=== PATIENT | male | born 1935 | race Caucasian/White ===

== ENCOUNTER 2016-07-31 05:47 | Observation (INO) | payer MEDICARE, OTHER ==
[2016-07-31] VITALS (7 sets, daily range): BP systolic 114–139; BP diastolic 62–97; PULSE 75–94; RESP 18–20; TEMP 97.8–98.1; O2SAT 92–99
[~2016-07-31] VITALS: Ht 182.9 cm; Wt 80.0 kg
[2016-07-31] MEDS ORDERED: SODIUM CHLORIDE 0.9% FLUSH 10 ML FLUSH IVF PRN (06:00)
[2016-07-31] MEDS ORDERED: MORPHINE SULFATE 4 MG/ML INJ IV PUSH ONE (06:00)
[2016-07-31] MEDS ORDERED: ALUMINUM/MAGNESIUM/SIMETH 30 ML CUP PO ONE ×2 (06:00→12:00)
[2016-07-31] MEDS ORDERED: SODIUM CHLORID 0.9% 500 ML INJ 500 ML IV ONE (06:00)
[2016-07-31] MEDS ORDERED: LIDOCAINE VISCOUS 2% SOLN 15 ML UDC PO ONE (06:00)
--- NOTE | 2016-07-31 06:02 | PD ---
HPI Chief Complaint: Chest Pain Time Seen by Provider: 05:58 Travel History International Travel<30 days: No Contact w/Intl Traveler<30days: No Traveled to known affect area: No History of Present Illness HPI 80-year-old male arrives to the ER by EMS with chest pain. He woke up about 4 hours prior to ER arrival with a burning sensation in the retrosternal chest. Prior to going to sleep he drink alcohol, "more than I should have." He also ate pepperoni and cheese. He states the pain had a similarity to GERD however lasted longer than any similar pain previously. PFSH Social History Tobacco Use: No Allergies-Medications (Allergen,Severity, Reaction): Coded Allergies: No Known Allergies (Unverified , 07/31/16) Reported Meds & Prescriptions Reported Meds & Active Scripts Active Reported Rabeprazole (Rabeprazole Sodium) 20 Mg Tab 20 Mg PO DAILY Ramipril 2.5 Mg Cap 2.5 Mg PO DAILY Aspirin 81 Mg Tabdr 81 Mg PO HS Simvastatin 40 Mg Tab 40 Mg PO HS Review of Systems Except as stated in HPI: all other systems reviewed are Neg Physical Exam Narrative GENERAL: 80-year-old male pleasant SKIN: Focused skin assessment warm/dry. HEAD: Atraumatic. Normocephalic. EYES: Pupils equal and round. No scleral icterus. No injection or drainage. ENT: No nasal bleeding or discharge. Mucous membranes pink and moist. NECK: Trachea midline. No JVD. CARDIOVASCULAR: Regular rate and rhythm. No murmur appreciated. RESPIRATORY: No accessory muscle use. Clear to auscultation. Breath sounds equal bilaterally. GASTROINTESTINAL: Abdomen soft, non-tender, nondistended. Hepatic and splenic margins not palpable. MUSCULOSKELETAL: No obvious deformities. No clubbing. No cyanosis. No edema. NEUROLOGICAL: Awake and alert. No obvious cranial nerve deficits. Motor grossly within normal limits. Normal speech. PSYCHIATRIC: Appropriate mood and affect; insight and judgment normal. Data Data Last Documented VS Vital Signs Date Time Temp Pulse Resp B/P Pulse Ox O2 Delivery O2 Flow Rate FiO2 07/31/16 06:05 83 07/31/16 05:53 97.8 18 134/97 94 Vital signs reviewed Orders Electrocardiogram (07/31/16 05:58) Basic Metabolic Panel (Bmp) (07/31/16 05:58) Ckmb (Isoenzyme) Profile (07/31/16 05:58) Complete Blood Count With Diff (07/31/16 05:58) Magnesium (Mg) (07/31/16 05:58) Prothrombin Time / Inr (Pt) (07/31/16 05:58) Act Partial Throm Time (Ptt) (07/31/16 05:58) Troponin I (07/31/16 05:58) Chest, Single Ap (07/31/16 05:58) Ecg Monitoring (07/31/16 05:58) Bilateral Bp Monitoring (07/31/16 05:58) Iv Access Insert/Monitor (07/31/16 05:58) Oximetry (07/31/16 05:58) Oxygen Administration (07/31/16 05:58) Morphine Inj (Morphine Inj) (07/31/16 06:00) Sodium Chloride 0.9% Flush (Ns Flush) (07/31/16 06:00) Sodium Chlorid 0.9% 500 Ml Inj (Ns 500 M (07/31/16 06:00) Al-Mag Hy-Si 40-40-4 Mg/Ml Liq (Mag-Al P (07/31/16 06:00) Lidocaine 2% Viscous (Xylocaine 2% Visco (07/31/16 06:00) CKMB (07/31/16 06:12) CKMB% (07/31/16 06:12) Resp Oxygen Nasal Cannula (07/31/16 ) Ckmb (Isoenzyme) Profile (07/31/16 10:01) Troponin I (07/31/16 10:01) Electrocardiogram (07/31/16 07:01) Electrocardiogram (07/31/16 10:01) Morphine Inj (Morphine Inj) (07/31/16 07:15) Ondansetron Inj (Zofran Inj) (07/31/16 07:15) Nitroglycerin Sl (Nitrostat Sl) (07/31/16 07:15) Aspirin (Aspirin) (07/31/16 09:00) Temazepam (Restoril) (07/31/16 07:15) Alprazolam (Xanax) (07/31/16 07:15) Admit Order (Ed Use Only) (07/31/16 07:01) CKMB (07/31/16 08:35) CKMB% (07/31/16 08:35) Labs Laboratory Tests Test 07/31/16 06:12 White Blood Count 13.0 TH/MM3 Red Blood Count 4.65 MIL/MM3 Hemoglobin 13.7 GM/DL Hematocrit 40.8 % Mean Corpuscular Volume 87.7 FL Mean Corpuscular Hemoglobin 29.5 PG Mean Corpuscular Hemoglobin 33.6 % Concent Red Cell Distribution Width 15.3 % Platelet Count 148 TH/MM3 Mean Platelet Volume 8.9 FL Neutrophils (%) (Auto) 84.7 % Lymphocytes (%) (Auto) 8.5 % Monocytes (%) (Auto) 5.7 % Eosinophils (%) (Auto) 0.7 % Basophils (%) (Auto) 0.4 % Neutrophils # (Auto) 11.1 TH/MM3 Lymphocytes # (Auto) 1.1 TH/MM3 Monocytes # (Auto) 0.7 TH/MM3 Eosinophils # (Auto) 0.1 TH/MM3 Basophils # (Auto) 0.1 TH/MM3 CBC Comment DIFF FINAL Differential Comment Prothrombin Time 10.3 SEC Prothromb Time International 0.9 RATIO Ratio Activated Partial 26.1 SEC Thromboplast Time Sodium Level 140 MEQ/L Potassium Level 4.3 MEQ/L Chloride Level 107 MEQ/L Carbon Dioxide Level 24.4 MEQ/L Anion Gap 9 MEQ/L Blood Urea Nitrogen 9 MG/DL Creatinine 0.83 MG/DL Estimat Glomerular Filtration 89 ML/MIN Rate Random Glucose 111 MG/DL Calcium Level 8.7 MG/DL Magnesium Level 2.2 MG/DL Total Creatine Kinase 163 U/L Creatine Kinase MB 1.2 NG/ML Troponin I 0.02 NG/ML [facility] Medical Decision Making Medical Screen Exam Complete: Yes Emergency Medical Condition: Yes Medical Record Reviewed: Yes Differential Diagnosis NSTEMI, unstable angina, coronary vasospasm, PE, PTX, aortic dissection, pericarditis, myocarditis, endocarditis, PNA, esophageal disease, aneurysm, musculoskeletal etiologies, anxiety, cocaine/sympathomimetic abuse Narrative Course CBC & BMP Diagram 07/31/16 06:12 Tn 0.02 CXR: NACPD EKG: sinus, rate 68, left axis, no acute ischemic injury pattern FIELD CAPTAIN protocol considered appropriate. Pt agreeable. Diagnosis Primary Impression: Chest pain Qualified Code: R07.9 - Chest pain, unspecified type Admitting Information Admitting Physician Requests: Observation Ty Turcios MD Jul 31, 2016 06:02 Ty Turcios MD Jul 31, 2016 06:02 Ty Turcios MD Jul 31, 2016 06:02
[2016-07-31] MEDS ORDERED: ASPI1TAB69 PO (06:03)
[2016-07-31] MEDS ORDERED: RAMI2.5C PO (06:03)
[2016-07-31] MEDS ORDERED: RABE1TAB PO (06:03)
[2016-07-31] MEDS ORDERED: SIMV40TA PO (06:03)
[2016-07-31 06:34] LABS: AUTOMATED NEUTROPHIL # 11.1 TH/MM3 (1.8-7.7); BASOPHIL # 0.1 TH/MM3 (0-0.2); BASOPHIL % 0.4 % (0.0-2.0); EOSINOPHIL # 0.1 TH/MM3 (0-0.4); EOSINOPHIL % 0.7 % (0.0-4.0); HEMATOCRIT 40.8 % (39.0-51.0); HEMO FLAGS DIFF FINAL; LYMPH % 8.5 % (9.0-44.0); LYMPHOCYTE # 1.1 TH/MM3 (1.0-4.8); MEAN CELL VOLUME 87.7 FL (80.0-100.0); MEAN CORPUSCULAR HEMOGLOBIN 29.5 PG (27.0-34.0); MEAN CORPUSCULAR HGB CONC 33.6 % (32.0-36.0); MONO % 5.7 % (0.0-8.0); NEUT % 84.7 % (16.0-70.0); PLATELET COUNT 148 TH/MM3 (150-450); RED BLOOD COUNT 4.65 MIL/MM3 (4.50-5.90); RED CELL DISTRIBUTION WIDTH 15.3 % (11.6-17.2)
[2016-07-31 06:39] LABS: APTT (PATIENT) 26.1 SEC (24.3-30.1); INTERNATIONAL NORMALIZED RATIO 0.9 RATIO; PROTHROMBIN TIME - PATIENT 10.3 SEC (9.8-11.6)
[2016-07-31 06:57] LABS: ANION GAP 9 MEQ/L (5-15); BICARBONATE 24.4 MEQ/L (21.0-32.0); BLOOD UREA NITROGEN 9 MG/DL (7-18); CHLORIDE 107 MEQ/L (98-107); GLOMERULAR FILTRATION RATE 89 ML/MIN (>89); SODIUM (NA) 140 MEQ/L (136-145)
[2016-07-31 06:59] LABS: CREATINE KINASE 163 U/L (39-308); MAGNESIUM 2.2 MG/DL (1.5-2.5); POTASSIUM 4.3 MEQ/L (3.5-5.1)
--- NOTE | 2016-07-31 07:00 | RADRPT ---
EXAM DATE/TIME: 07/31/2016 06:06 [place] COMPARISON: No previous studies available for comparison. INDICATIONS : Shortness of breath, possible pulmonary disease. MEDICAL HISTORY : Chronic obstructive pulmonary disease. Hypertension SURGICAL HISTORY : None. ENCOUNTER: Initial ACUITY: 1 day PAIN SCORE: 0/10 LOCATION: Bilateral chest FINDINGS: The heart size is normal. The aorta is mildly widened. The lungs are clear. No effusion is seen. CONCLUSION: No acute disease. Tyrese Mendoza MD on July 31, 2016 at 6:58 Board Certified Radiologist. This report was verified electronically.
[2016-07-31 07:12] LABS: CKMB 1.2 NG/ML (0.5-3.6)
[2016-07-31] MEDS ORDERED: TEMAZEPAM 15 MG CAP PO PRN (07:15)
[2016-07-31] MEDS ORDERED: NITROGLYCERIN 0.4 MG SL 25 TABS/BTL SL PRN (07:15)
[2016-07-31] MEDS ORDERED: ONDANSETRON HCL 4 MG/2 ML VIAL IV PRN (07:15)
[2016-07-31] MEDS ORDERED: MORPHINE SULFATE 4 MG/ML INJ IV PRN (07:15)
[2016-07-31] MEDS ORDERED: ALPRAZolam 0.25 MG TAB PO PRN (07:15)
[2016-07-31] MEDS ORDERED: ASPIRIN 325 MG TAB PO SCH (09:00)
[2016-07-31 09:32] LABS: CREATINE KINASE 136 U/L (39-308)
[2016-07-31 09:44] LABS: CKMB 1.3 NG/ML (0.5-3.6)
--- NOTE | 2016-07-31 09:57 | HHI.HP ---
HPI Primary Care Physician Jose Nolan M.D. Chief Complaint Chest pain History of Present Illness 80-year-old patient with known coronary artery disease, hyperlipidemia, and hypertension presents to the emergency room for further evaluation of chest discomfort. He was awoken from sleep at 2 AM with severe heart burn and substernal chest discomfort characterized as heaviness and tightness. No radiation. Duration lasted over an hour at that time he decided to call EMS. No associated symptoms. Precipitating factors he believes was drinking 6 beers and eating pepperoni and cheese crackers before bed. He has had GERD in the past but not as severe as this episode. Took 3 Tums without relief. Morphine provided in the ER may have helped somewhat however patient believes pain was improving subsiding before morphine given. Review of Systems General: No fatigue,weakness, fever, chills, or recent illness. Has been in his general state of health. HEENT: No ESQUEDA, no vision changes, no nasal congestion or drainage, no dysphasia CV: As stated above. Mild substernal chest discomfort described as indigestion. RESP: No SOB, cough, wheeze, or recent URI. GI: GI cocktail provided in ER gave him some relief. States he only feels indigestion feeling if he were cough. No nausea, vomiting, bowel changes, diarrhea, constipation, pain, distention, melena, blood in the stool. No change in appetite,. : No dysuria, urgency, frequency, EXT: No lower leg edema, no paraesthesias MS: No discomfort or change in ROM, no use of cane or walker required NEURO: No change in memory, dizziness, difficulty with balance, LOC, motor/ sensory deficits PSYCH: No anxiety or depression SKIN: No rashes, no concerning lesions Past Family Social History Allergies: Coded Allergies: No Known Allergies (Unverified , 07/31/16) Past Medical History Hyperlipidemia, hypertension, coronary artery disease, one cardiac [id number], aorta aneurysm Past Surgical History [id number], bowel resection states "nicked my bowel during my gallbladder surgery.", Abdominal hernia repair 2 Reported Medications Reported Meds & Active Scripts Active Reported Rabeprazole (Rabeprazole Sodium) 20 Mg Tab 20 Mg PO DAILY Ramipril 2.5 Mg Cap 2.5 Mg PO DAILY Aspirin 81 Mg Tabdr 81 Mg PO HS Simvastatin 40 Mg Tab 40 Mg PO HS Active Ordered Medications Current Medications Medications (Trade) Dose Ordered Sig/Christie Route Start Time Stop Time Status Last Admin (NS Flush) 2 ml UNSCH PRN IVF 07/31/16 06:00 (Morphine Inj) 2 mg Q4H PRN IV 07/31/16 07:15 (Zofran Inj) 4 mg Q6H PRN IV 07/31/16 07:15 (Nitrostat Sl) 0.4 mg Q5M PRN SL 07/31/16 07:15 (Aspirin) 325 mg DAILY PO 07/31/16 09:00 07/31/16 08:49 (Restoril) 15 mg HS PRN PO 07/31/16 07:15 (Xanax) 0.25 mg Q8H PRN PO 07/31/16 07:15 (Tylenol) 500 mg Q4H PRN PO 07/31/16 10:00 Social History Known hyperlipidemia and hypertension. No known diabetes. Quit smoking in 2001 after his heart attack, prior to quitting he smoked 2 packs daily for 50 years. Drinks 6 beers daily. Denies any illegal drug use. States he is sedentary. Past cardiac testing Follows with Dr. Richards. Exercise stress test fall was unremarkable. Abdominal aneurysm ultrasound- April 2016. Remembers being told aneurysm is 4.2 cm and stable. Physical Exam Vital Signs Vital Signs Date Time Temp Pulse Resp B/P Pulse Ox O2 Delivery O2 Flow Rate FiO2 07/31/16 08:00 94 20 139/65 95 07/31/16 06:05 83 07/31/16 05:53 97.8 75 18 134/97 94 Physical Exam GENERAL: Alert WN, WD, NAD, pleasant, male HEAD: NC, AT EYES: Sclera clear, conjunctiva without injection, pupils equal and round ENT: Mucous membranes pink and moist NECK: Supple, no masses, trachea midline CV: RRR, without murmur, rub, gallop, no JVD, S1-S2 no S3-S4. No carotid or femoral bruits. RESP: Clear lungs throughout bilateral, no crackles, wheeze, rhonchi, symmetrical chest rise, nonlabored, able to speak in full sentences ABD: Soft, NT, ND, no masses, positive bowel tones EXT: Pulses +24, no dependent edema MS: Normal tone 4 extremities, nontender, no obvious deformities, full range of motion NEURO: CN II through CN XII grossly intact, motor strength 5/5, gait WNL PSYCH: A+O 3, pleasant affect, appropriate speech, appropriate mood and affect , insight and judgment SKIN: Normal turgor, normal texture, no lesions, no rashes, brisk cap refill, even hair distribution Laboratory Laboratory Tests Test 07/31/16 07/31/16 06:12 08:35 White Blood Count 13.0 Red Blood Count 4.65 Hemoglobin 13.7 Hematocrit 40.8 Mean Corpuscular Volume 87.7 Mean Corpuscular Hemoglobin 29.5 Mean Corpuscular Hemoglobin 33.6 Concent Red Cell Distribution Width 15.3 Platelet Count 148 Mean Platelet Volume 8.9 Neutrophils (%) (Auto) 84.7 Lymphocytes (%) (Auto) 8.5 Monocytes (%) (Auto) 5.7 Eosinophils (%) (Auto) 0.7 Basophils (%) (Auto) 0.4 Neutrophils # (Auto) 11.1 Lymphocytes # (Auto) 1.1 Monocytes # (Auto) 0.7 Eosinophils # (Auto) 0.1 Basophils # (Auto) 0.1 CBC Comment DIFF FINAL Differential Comment Prothrombin Time 10.3 Prothromb Time International 0.9 Ratio Activated Partial 26.1 Thromboplast Time Sodium Level 140 Potassium Level 4.3 Chloride Level 107 Carbon Dioxide Level 24.4 Anion Gap 9 Blood Urea Nitrogen 9 Creatinine 0.83 Estimat Glomerular Filtration 89 Rate Random Glucose 111 Calcium Level 8.7 Magnesium Level 2.2 Total Creatine Kinase 163 136 Creatine Kinase MB 1.2 1.3 Troponin I 0.02 0.02 Result Diagram: 07/31/1612 07/31/16 0612 Imaging Last Impressions Chest X-Ray 07/31/16 0558 Signed Impressions: Service Date/Time: Sunday, July 31, 2016 06:06 - CONCLUSION: No acute disease. Tyrese Mendoza MD Course EKGs 3 EKG showed normal sinus rhythm, no ST or T-segment changes, left axis deviation Assessment and Plan Assessment and Plan #1 Chest painadmitted to chest pain center. Ruled out with 3 sets of EKGs and cardiac enzymes. Seen and evaluated by Dr. Jim Colón. No further cardiac testing required, as patient's pain most likely caused by acid reflux and he recently had a normal exercise stress test. Dr. Richards made aware of patient's arrival to chest pain center. Keep regular routine appointment with rental representative. #2 GERDGI cocktail 2, continue PPI. Educated on potential triggers including alcohol and spicy foods. Encouraged use of Zantac in addition to PPI and liberal use of antacids with severe acid reflux attacks. Will discharge later this afternoon. #3 Hyperlipidemiacontinue simvastatin #4 Alcohol useencouraged him to decrease his daily alcohol intake Milvia Collazo Jul 31, 2016 09:57
[2016-07-31] MEDS ORDERED: ACETAMINOPHEN 500 MG CPLT PO PRN (10:00)
[2016-07-31] MEDS ORDERED: LIDOCAINE VISCOUS 2% SOLN 15 ML UDC SWISH-SWAL ONE (12:00)
[2016-07-31] MEDS ORDERED: RAMIPRIL 2.5 MG CAP PO SCH (12:00)
[2016-07-31] MEDS ORDERED: PANTOPRAZOLE SOD 40 MG DELAYED RELEASE TAB PO SCH (12:00)
--- NOTE | 2016-07-31 12:45 | HHI.DCPOC ---
Discharge Care Plan Diagnosis: (1) GERD (gastroesophageal reflux disease) (2) Hx of coronary artery disease Goals to Promote Your Health * To prevent worsening of your condition and complications * To maintain your health at the optimal level Directions to Meet Your Goals Take your medications as prescribed Follow your dietary instruction Follow activity as directed Keep your appointments as scheduled Take your immunizations and boosters as scheduled If your symptoms worsen call your PCP, if no PCP go to Urgent Care Center or Emergency Room Smoking is Dangerous to Your Health. Avoid second hand smoke Call the 24-hour hour crisis hotline for domestic abuse at Milvia Collazo Jul 31, 2016 12:45
--- NOTE | 2016-07-31 13:20 | EKG ---
Date Performed: 07/31/2016 Time Performed: 06:08:30 PTAGE: 80 years EKG: Sinus rhythm MARKED LEFT AXIS DEVIATION ABNORMAL ECG NO PREVIOUS TRACING DOCTOR: Imer Granger Interpretating Date/Time 07/31/2016 13:17:15
--- NOTE | 2016-07-31 13:35 | EKG ---
Date Performed: 07/31/2016 Time Performed: 08:36:09 PTAGE: 80 years EKG: ECTOPIC ATRIAL RHYTHM MARKED LEFT AXIS DEVIATION ABNORMAL ECG Compared to prior tracing no significant change PREVIOUS TRACING : 07/31/2016 06.08 DOCTOR: Imer Granger Interpretating Date/Time 07/31/2016 13:33:05
[2016-07-31] MEDS ORDERED: PRAVASTATIN SOD 80 MG TAB PO SCH (21:00)
--- NOTE | 2016-08-01 13:33 | EKG ---
Date Performed: 07/31/2016 Time Performed: 12:41:32 PTAGE: 80 years EKG: Sinus rhythm WITH FIRST DEGREE AV BLOCK MARKED LEFT AXIS DEVIATION Compared to prior tracing no significant hager e ABNORMAL ECG PREVIOUS TRACING : 07/31/2016 08.36 DOCTOR: Imer Granger Interpretating Date/Time 08/01/2016 13:30:51
== END 2016-07-31 17:52 | disposition home or self-care (01) ==
LOC: NEPE 05:47 → NEDA 07:03 → NEPHCDU 11:01
DX: K21.9 Gastro-esophageal reflux disease without esophagitis (principal); R07.9 Chest pain, unspecified; I25.10 Atherosclerotic heart disease of native coronary artery without angina pectoris; I10 Essential (primary) hypertension; E78.5 Hyperlipidemia, unspecified; R94.31 Abnormal electrocardiogram [ECG] [EKG]; I25.2 Old myocardial infarction; Z90.49 Acquired absence of other specified parts of digestive tract; Z95.5 Presence of coronary angioplasty implant and graft; Z87.891 Personal history of nicotine dependence
CPT/HCPCS: 71010; 80048; 82550; 82552; 83735; 84484; 85025; 85610; 85730; 93005; 96374; 99285; G0378; J2270; J7040